=== PATIENT | male | born 1980 | race Caucasian/White ===

== ENCOUNTER 2021-06-16 22:40 | Emergency (ER) | payer OTHER ==
[2021-06-16 23:16] LABS: BASOPHIL 0.5 % (0-2); EOSINOPHIL 1.2 % (0-5); HCT 43.9 % (42.0-52.0); HGB 15.6 g/dl (13.2-18.0); LYMPHOCYTE 22.5 % (15-48); MCH 31.5 pg (25.0-31.0); MCHC 35.5 g/dL (32.0-36.0); MCV 88.7 fL (78.0-100.0); MONOCYTE 7.3 % (0-12); NEUTROPHIL 68.2 % (41-80); NRBC 0; PLT 179 K/uL (150-400); RBC 4.95 M/uL (4.70-6.00); RDW 12.6 % (11.5-14.0); WBC 6.5 K/uL (4.0-10.5)
[2021-06-16 23:31] LABS: BUN/CREAT RATIO (CALC) 13.7 RATIO; CREATININE 1.17 mg/dL (0.67-1.17); POTASSIUM 3.2 mmol/L (3.5-5.1)
== END 2021-06-17 01:47 | disposition home or self-care (01) ==
LOC: FER 22:40
PROVIDERS: Internal Medicine
DX: R07.89 Other chest pain (principal); T40.725A Adverse effect of synthetic cannabinoids, initial encounter; I25.10 Atherosclerotic heart disease of native coronary artery without angina pectoris; I25.2 Old myocardial infarction; I10 Essential (primary) hypertension; E78.5 Hyperlipidemia, unspecified; Z95.5 Presence of coronary angioplasty implant and graft; Z79.02 Long term (current) use of antithrombotics/antiplatelets; Z79.899 Other long term (current) drug therapy
CPT/HCPCS: 36415; 71045; 80048; 83880; 84145; 84484; 85025; 93005; J2060